=== PATIENT | male | born 1995 | race American Indian/Alaskan Native ===

== ENCOUNTER 2019-07-22 16:34 | Emergency (ER) | payer SELFPAY ==
[2019-07-22 16:40] VITALS: BP 158/83
--- NOTE | 2019-07-22 17:07 | Emergency Department Report ---
Chief Complaint: Dental/Oral Stated Complaint: TOOTACHE Time Seen by Provider: 07/22/19 16:48 - HPI History of Present Illness: The patient is a 24 -year-old male who presents to ED complaining of 6/10 pain in the left side of his mouth x 2 days . Patient states that the pain started 5 days ago and has increased in severity over the last days. Patient describes a as a throbbing, pressure-like sensation. Patient states otherwise well and has no other complaints. Patient has had no fevers and no chills. No chest pain, no shortness of breath. No abdominal pain. No shortness of breath or recent trauma to the face. - ROS Review of Systems: as noted in HPI - Exam Vital Signs: Vital Signs 07/22/19 16:37 Temperature 97 F L Pulse Rate 78 Respiratory 18 Rate Blood Pressure 158/83 O2 Sat by Pulse 99 Oximetry Physical Exam: GEN: no acute distress, aao x 3, MSE screening note: Focused history and physical exam performed. Due to findings the following was ordered: ED Medical Decision Making - Medical Decision Making 21-year-old male presents with dental pain. Discussed the patient to follow-up with dentist. Patient had no swelling to the gums or bleeding or erythema. Airway was patent. Dental referrals given. ED Disposition for MSE Clinical Impression: Pain, dental Disposition: Z-07 MED SCREENING EXAM-LEFT Is pt being admited?: No Does the pt Need Aspirin: No Condition: Stable Instructions: Toothache (ED) Additional Instructions: Take motrin as needed for pain and inflamation follow up with dentist as reffered Referrals: [facility] [Outside] - 3-5 Days [facility] [Outside] - 3-5 Days [facility] [Outside] - 3-5 Days Forms: Work/School Release Form(ED) Time of Disposition: 16:50
== END 2019-07-22 17:07 | disposition left against medical advice (07) ==
LOC: ED 16:34
DX: K08.89 Other specified disorders of teeth and supporting structures (principal)
CPT/HCPCS: 99282